=== PATIENT | male | born 1960 | race Caucasian/White ===

== ENCOUNTER 2016-09-19 10:09 | Day surgery (SDC) | payer BC ==
[~2016-09-19 10:09] MED LIST: DIPRIVAN 200 MG/20 ML IV ONE; Quelicin Fliptop 200 MG/10 ML IJ ONE
[2016-09-19] MEDS ORDERED: Lactated Ringers 1,000 ML IV SCH (10:30)
[2016-09-19] MEDS ORDERED: SUBLIMAZE 100 MCG/2 ML IV ONE (10:30)
[2016-09-19] MEDS ORDERED: Lactated Ringers 1,000 ML IV ONE (10:42)
[2016-09-19] MEDS ORDERED: MINERAL OIL LIGHT 10 ML FOR SURGERY ONE (10:42)
--- NOTE | 2016-09-19 11:08 | HP ---
DATE OF SURGERY: 09/19/2016 HISTORY OF PRESENT ILLNESS: The patient is a 56 year-old with nonhealing lesion slight ulcerated for a while. No prior skin cancer. Given his nonhealing face lesion and slight ulceration desires excision for definitive path and treatment. PAST MEDICAL HISTORY: Hyperlipidemia and some gout. PAST SURGICAL HISTORY: Wilms' tumor back in 1959. Right testicle surgery in 1971. He had some sort of pexiganin it sounds like. He had a cyst surgery in the past. MEDICATIONS: Allopurinol, Pravastatin, fish oil. ALLERGIES: CATS. NKDA. FAMILY HISTORY: Cancer, diabetes, chronic obstructive pulmonary disease, stroke, heart disease. He has history of melanoma. SOCIAL HISTORY: No smoking. Alcohol use one bottle every couple of weeks. REVIEW OF SYSTEMS: Twelve systems reviewed per admission assessment. No chest pain or palpitations other systems negative or noncontributory as above and per preadmission questionnaire. PHYSICAL EXAMINATION: GENERAL: No acute distress. HEENT: Sclerae nonicteric. On his face he has got a slightly ulcerated nonhealing lesion. NECK: No JVD. CHEST: Equal excursion, nonlabored breathing. CVS: Regular rate and rhythm. ABDOMEN: Soft, nontender. EXTREMITIES: No significant edema. NEURO: Alert, moving extremities symmetrically. IMPRESSION: Nonhealing right face lesion with slight ulceration. I felt the patient would benefit from excisional biopsy as there is concern risk of malignancy. He understands the risks and benefits of the procedure in detail but not limited to bleeding or infection, possible need for flap or graft with the risk of healing problems with flap or graft possibly requiring other procedures, debridement or healing by secondary intent. General risk of aches, pains, burning or numbness. He also understands that given the face risk of motor nerve irritation, scar formation or injury, risk of chewing dysfunction, risk of lip motion dysfunction or even eyelid dysfunction or dry eye possibly requiring other procedures but not limited to. He understands all the above but not limited to, will proceed with excisional biopsy of nonhealing right face lesion possible flap, possible skin graft pending operative findings.
[2016-09-19] MEDS ORDERED: Sensorcaine 0.25% 10 ML ONE (11:38)
[2016-09-19] MEDS ORDERED: Lactated Ringers 0 ML IV ONE (11:38)
[2016-09-19] MEDS ORDERED: SUBLIMAZE 100 MCG/2 ML ONE (13:11)
--- NOTE | 2016-09-19 13:19 | OP ---
SURGERY DATE: 09/19/16 SURGERY TIME: 1214 PREOPERATIVE DIAGNOSIS: 1. NONHEALING RIGHT FACE LESION WITH INTERMITTENT HISTORY OF ULCERATION. POSTOPERATIVE DIAGNOSIS: 1. NONHEALING RIGHT FACE LESION WITH INTERMITTENT HISTORY OF ULCERATION. PROCEDURE: 1. Excisional biopsy right face nonhealing lesion with intermediate closure with local advancement flaps (lesion with margins approximately 1.5 cm). SURGEON: Dr. Sb Patterson. ANESTHESIA: General. ESTIMATED BLOOD LOSS: Minimal. INDICATIONS: As noted above. Risks and benefits explained in detail, but not limited to. Consent was obtained. DESCRIPTION OF PROCEDURE AND FINDINGS: The patient was taken to the OR. The site had been confirmed with the patient in the pre-op holding area. He was prepped and draped in the usual sterile fashion after general anesthesia was induced. After official time-out, no disagreement in planned procedure. Marking out to normal-appearing skin on either side of this raised roughened area. Dissection was carried down. It was felt it was best to go ahead and do a spindle shaped excision pattern which resulted in about a 2.5 cm, long, spindle shaped excision pattern dissecting down to normal-appearing subcutaneous fat beneath. Specimen was passed off. The lesion itself with margins was about 1.5 cm. Dissection carried down to normal-appearing subcutaneous tissue, carefully avoiding any visible neural structure. Specimen passed off. Good hemostasis noted. Again, dissection had been carried out to normal-appearing skin on either side of this. At this point, the flaps were mobilized on either side and then mobilized back towards the midline in local advancement flap fashion with interrupted 4-0 Vicryl closing the subq and deep dermis with flaps in the midline. Once this was accomplished, 4-0 Prolene was used to close the subcuticular area and running 5-0 Prolene. Steri-strips and sterile dressing applied. The Prolene suture was then tied over the top with Steri-strips. Sterile dressing was applied. Patient tolerated the procedure well. There were no immediate complications. Findings discussed with the family out the waiting area. He was transferred to recovery in stable condition.
[2016-09-19] MEDS ORDERED: Zofran 4 MG/2 ML VIAL IV STA (14:13)
[2016-09-19 14:35] VITALS: BP 125/62; PULSE 71
[2016-09-19 14:43] VITALS: O2SAT 98
== END 2016-09-19 14:40 | disposition home or self-care (01) ==
LOC: SDC 10:09
PROVIDERS: ATTEND Surgery
PROC: 0HX1XZZ Transfer Face Skin, External Approach (ICD-10-PCS; principal; 2016-09-19)
PROC: 0HB1XZX Excision of Face Skin, External Approach, Diagnostic (ICD-10-PCS; 2016-09-19)
DX: L98.9 Disorder of the skin and subcutaneous tissue, unspecified (principal); E78.5 Hyperlipidemia, unspecified; M10.9 Gout, unspecified; Z79.899 Other long term (current) drug therapy
CPT/HCPCS: 00300; 36415; J0330; J2405; J2704; J3010; A9270-GY